=== PATIENT | female | born 2000 | race Caucasian/White ===

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

== ENCOUNTER 2019-06-04 09:13 | Emergency (ER) | payer OTHER ==
[~2019-06-04] VITALS: Ht 165.1 cm; Wt 56.8 kg
[~2019-06-04 09:13] MED LIST: ACHD5005 PO; PRED10TA22 PO
[2019-06-04] MEDS ORDERED: fentaNYL INJECTION 100 MCG/2 ML AMP ONE (09:26)
[2019-06-04] MEDS ORDERED: NS IV 1000 ML 1,000 ML IV SCH (09:29)
[2019-06-04] MEDS ORDERED: fentaNYL INJECTION 100 MCG/2 ML AMP IVP ONE ×2 (09:30→11:45)
[2019-06-04] MEDS ORDERED: HOLD METFORMIN - RECEIVED CONTRAST 20 ML VIAL IV SCH (09:30)
[2019-06-04] MEDS ORDERED: IOHEXOL 350 MG/ML 100 ML (OMNIPAQUE 350) VIAL IV ONE (09:30)
[2019-06-04] MEDS ORDERED: NS 100 ML (IVPB) BAG IV ONE (09:30)
[2019-06-04 09:36] LABS: HEMOGLOBIN 12.1 G/DL (11.5-16.0); MEAN PLATELET VOLUME 9.8 FL (7.4-10.4); RED CELL DISTRIBUTION WIDTH 14.2 % (10.0-14.5); WHITE BLOOD COUNT 6.3 10^3/uL (4.3-11.0)
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
[2019-06-04 09:52] LABS: ALANINE AMINOTRANSFERASE 15 U/L (0-55); ALBUMIN 4.4 GM/DL (3.2-4.5); ALKALINE PHOSPHATASE 69 U/L (40-136); BILIRUBIN,DIRECT 0.1 MG/DL (0.0-0.3); BILIRUBIN,INDIRECT 0.1 MG/DL; BILIRUBIN,TOTAL 0.2 MG/DL (0.1-1.0); BUN/CREATININE RATIO 12; CALCIUM 9.4 MG/DL (8.5-10.1); CARBON DIOXIDE 25 MMOL/L (21-32); CHLORIDE 104 MMOL/L (98-107); CREATININE SERUM 0.81 MG/DL (0.60-1.30); GFR ESTIMATED > 60; GLUCOSE 98 MG/DL (70-105); POTASSIUM 4.1 MMOL/L (3.6-5.0); SODIUM 138 MMOL/L (135-145); TOTAL PROTEIN 7.4 GM/DL (6.4-8.2)
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
--- NOTE | 2019-06-04 09:54 | Diagnostic Imaging Report ---
INDICATION: Trauma COMPARISON: None FINDINGS: Single view of the pelvis demonstrates no fracture or dislocation. Articular surfaces are normal. SI joints and symphysis are approximated. No foreign body. IMPRESSION: Negative pelvis Dictated by: Dictated on workstation # [id number]
--- NOTE | 2019-06-04 09:59 | Diagnostic Imaging Report ---
PROCEDURE: CT head and CT cervical spine without contrast. TECHNIQUE: Multiple contiguous axial images were obtained through the brain and cervical spine without the use of intravenous contrast. Sagittal and coronal reformations through the cervical spine were then performed. Auto Exposure Controls were utilized during the CT exam to meet ALARA standards for radiation dose reduction. INDICATION: Trauma, head injury. COMPARISON: None. FINDINGS: CT HEAD: The ventricles are normal in size, shape, and position. There is no midline shift or mass effect. There is no hemorrhage or evidence of acute ischemia. There is no skull fracture. The paranasal sinuses and mastoids are clear. IMPRESSION: Negative CT head. CT CERVICAL SPINE: The alignment is normal. There is no subluxation, fracture, or degeneration. The soft tissues are grossly normal. IMPRESSION: No traumatic malalignment or fracture. Dictated by: Dictated on workstation # [id number]
--- NOTE | 2019-06-04 10:24 | Diagnostic Imaging Report ---
PROCEDURE: CT abdomen and pelvis with contrast. TECHNIQUE: Multiple contiguous axial images were obtained through the abdomen and pelvis after administration of intravenous contrast. Auto Exposure Controls were utilized during the CT exam to meet ALARA standards for radiation dose reduction. INDICATION: Trauma, abdominal pain. COMPARISON: None. FINDINGS: Lung bases are clear. The gallbladder, liver, spleen, pancreas, adrenal glands, kidneys, vascular structures, and bowel are normal. There is no free air or free fluid. The abdominal wall is intact. Distal ureters and urinary bladder are normal. Reproductive organs are grossly unremarkable. There is no inflammatory process. Osseous structures throughout are intact. No fractures are identified. IMPRESSION: Negative CT abdomen and pelvis. No acute trauma identified. Dictated by: Dictated on workstation # [id number]
--- NOTE | 2019-06-04 10:39 | Diagnostic Imaging Report ---
INDICATION: Trauma, toe injury. COMPARISON: None. FINDINGS: Three views of the right toes demonstrate dislocation of the first metatarsophalangeal joint. There is no visible fracture. The second, third and fourth digits are unremarkable. No foreign body. IMPRESSION: Dislocation of the first metatarsophalangeal joint. Dictated by: Dictated on workstation # [id number]
--- NOTE | 2019-06-04 10:40 | Diagnostic Imaging Report ---
INDICATION: Trauma, hand injury. COMPARISON: None. FINDINGS: 3 views of the right hand demonstrate questionable subluxation of the 5th metacarpophalangeal joint. Please correlate with physical exam. There is no fracture or foreign body. No bony erosion. IMPRESSION: Questionable subluxation of the 5th metacarpophalangeal joint. Please correlate with physical exam. Dictated by: Dictated on workstation # [id number]
--- NOTE | 2019-06-04 10:41 | Diagnostic Imaging Report ---
INDICATION: Right knee injury. COMPARISON: None. FINDINGS: Three views of the right knee demonstrate no fracture or dislocation. The articular surfaces are normal. No foreign body or joint effusion. IMPRESSION: Negative right knee. Dictated by: Dictated on workstation # [id number]
[2019-06-04 11:28] LABS: BILIRUBIN,URINE NEGATIVE (NEGATIVE); CLARITY,URINE SL CLOUDY; COLOR,URINE YELLOW; GLUCOSE, URINE (UA) NEGATIVE (NEGATIVE); KETONES,URINE NEGATIVE (NEGATIVE); LEUKOCYTE ESTERASE ,URINE NEGATIVE (NEGATIVE); NITRITE,URINE NEGATIVE (NEGATIVE); PROTEIN,URINE NEGATIVE (NEGATIVE)
[2019-06-04] MEDS ORDERED: LIDOCAINE 1% INJ 20 ML 20 ML VIAL INJ ONE (11:45)
[2019-06-04 11:46] LABS: BACTERIA,URINE NEGATIVE /HPF; RBC,URINE 50-100 /HPF; SQUAMOUS EPITHELIAL CELL,UR 0-2 /HPF; WBC,URINE RARE /HPF
[2019-06-04] MEDS ORDERED: KETAMINE/NaCl 50 MG/5 ML SYRINGE (ED ONLY) IV ONE ×2 (12:15→13:30)
[2019-06-04] MEDS ORDERED: LORazepam INJ 2 MG/ML (ATIVAN) VIAL IVP ONE (12:15)
[2019-06-04] MEDS ORDERED: MIDAZOLAM 5 MG/5 ML (VERSED) VIAL ONE (12:34)
--- NOTE | 2019-06-04 12:55 | NUR ---
X4 (4-O Prolene) sutures to Rt knee et covered with bandaid. X9 (4-O Prolene) sutures to Rt great toe et covered with telfa pad, kerlix, and postop shoe.
[2019-06-04] MEDS ORDERED: ceFAZolin INJECTION 1,000 MG in WATER (STERILE) FOR INJECTION 10 ML IV ONE (13:30)
[2019-06-04] MEDS ORDERED: MIDAZOLAM 5 MG/5 ML (VERSED) VIAL IVP ONE (13:30)
--- NOTE | 2019-06-04 13:39 | Diagnostic Imaging Report ---
HISTORY: Right great toe injury. TECHNIQUE: Two views of the right great toe. COMPARISON: Radiographs from the same day. FINDINGS: There has been interval reduction of the right 1st metatarsophalangeal joint. The alignment is markedly improved. There are small calcific densities adjacent to the 1st MTP joint which could represent a small chip fracture although the donor site is not definitively seen. IMPRESSION: 1. Reduction of the right great toe metatarsophalangeal joint with normal alignment. 2. Small calcifications adjacent to the 1st metatarsophalangeal joint, likely representing small chip fractures, although the donor site is not clearly seen. Dictated by: Dictated on workstation # [id number]
[2019-06-04] MEDS ORDERED: ONDANSETRON 4 MG/2 ML (SDV) Z0FRAN ONE (14:35)
[2019-06-04] MEDS ORDERED: CYCL10TA9 PO (14:35)
[2019-06-04] MEDS ORDERED: ONDA4TAB11 PO (14:35)
[2019-06-04] MEDS ORDERED: ACHD5005 PO (14:35)
[2019-06-04] MEDS ORDERED: CEPH-507 PO (14:35)
[2019-06-04] MEDS ORDERED: ONDANSETRON 4 MG/2 ML (SDV) Z0FRAN IVP ONE (14:45)
[2019-06-04 14:50] VITALS: BP 99/58
--- NOTE | 2019-06-04 14:50 | NUR ---
This RN assisted pt to d/c via ED w/c to POV. Upon transfer from ED w/c to POV pt became pale, diaphoretic, et experienced near syncopal episode. Pt arroused, regained conciousness, et was able to answer questions appropriately. Mother et father at side denied further evaluation et monitoring of pt in this ED. Pt properly restained in vehicle.
== END 2019-06-04 15:00 | disposition home or self-care (01) ==
LOC: EDUNIT# 09:13 → ER 09:14
DX: S93.104A Unspecified dislocation of right toe(s), initial encounter (principal); S91.111A Laceration without foreign body of right great toe without damage to nail, initial encounter; S81.011A Laceration without foreign body, right knee, initial encounter; S60.221A Contusion of right hand, initial encounter; S13.4XXA Sprain of ligaments of cervical spine, initial encounter; S06.0X9A Concussion with loss of consciousness of unspecified duration, initial encounter; R40.2142 Coma scale, eyes open, spontaneous, at arrival to emergency department; R40.2252 Coma scale, best verbal response, oriented, at arrival to emergency department; R40.2362 Coma scale, best motor response, obeys commands, at arrival to emergency department; Z79.52 Long term (current) use of systemic steroids; V44.5XXD Car driver injured in collision with heavy transport vehicle or bus in traffic accident, subsequent encounter
CPT/HCPCS: 12013; 36415; 64450; 70450; 71045; 72125; 72170; 73130; 73562; 73660; 74177; 80048; 80076; 80320; 81000; 84703; 85027; 86850; 86900; 86901; 93041; 99291

== ENCOUNTER 2019-06-18 16:09 | Emergency (ER) | payer OTHER ==
[~2019-06-18] VITALS: Ht 157 cm; Wt 63.5 kg
[~2019-06-18 16:09] MED LIST changes: +CEPH-507 PO; +CYCL10TA9 PO; +ONDA4TAB11 PO
[2019-06-18 16:50] VITALS: BP 123/68
== END 2019-06-18 16:51 | disposition home or self-care (01) ==
LOC: EDUNIT# 16:09 → ER 16:10
DX: S81.011D Laceration without foreign body, right knee, subsequent encounter (principal); X58.XXXA Exposure to other specified factors, initial encounter